=== PATIENT | male | born 1970 | race African-American/Black ===

== ENCOUNTER 2024-06-19 14:56 | Emergency (ER) | payer OTHER ==
[~2024-06-19] VITALS: Ht 188 cm; Wt 94.8 kg
[2024-06-19] MEDS: LACTATED RINGERS 1000ML 1,000 ML IV SCH (16:26)
[2024-06-19 16:40] LABS: BASOPHILS # (AUTO) 0.02 K/uL (0.00-0.20); BASOPHILS % (AUTO) 0.6 % (0.0-5.0); EOSINOPHILS # (AUTO) 0.04 K/uL (0.00-0.70); EOSINOPHILS % (AUTO) 1.1 % (0.0-8.0); HEMATOCRIT 36.4 % (42-54); IMMATURE GRANULOCYTE ABSOLUTE 0.01 K/uL (0-1); LYMPHOCYTES # (AUTO) 1.2 K/uL (1.0-4.8); MEAN CORPUSCULAR HEMOGLOBIN 30.5 pg (27.0-33.0); MEAN CORPUSCULAR HGB CONC 33.8 g/dL (32.0-36.0); MEAN CORPUSCULAR VOLUME 90.3 fL (79-99); MONOCYTES # (AUTO) 0.4 K/uL (0.1-1.0); NEUTROPHILS # (AUTO) 1.9 K/uL (1.8-7.7); PLATELET COUNT (AUTO) 132 K/uL (130-400); RED BLOOD CELL COUNT(AUTO) 4.03 MIL/uL (4.50-6.20); RED CELL DISTRIBUTION WIDTH 14.6 % (11.0-15.5); WHITE BLOOD COUNT (AUTO) 3.6 K/uL (4.8-10.8)
[2024-06-19 16:46] LABS: POTASSIUM 3.5 mmol/L (3.5-5.1)
[2024-06-19 17:59] VITALS: BP 165/79; PULSE 78; RESP 18; O2SAT 99
[2024-06-19] MEDS: KETOROLAC 15MG/ML VIAL (15MG/ML) IV ONE (18:04)
[2024-06-19] MEDS: acetaMINOPHEN 500 MG TABLET PO ONE (18:05)
[2024-06-19] MEDS ORDERED: IBUP-2070 PO (18:14)
[2024-06-19] MEDS ORDERED: ACET-66 PO (18:14)
== END 2024-06-19 18:25 | disposition home or self-care (01) ==
LOC: EEVIPCON 14:56 → EDH 14:56
DX: T67.5XXA Heat exhaustion, unspecified, initial encounter (principal); R51.9 Headache, unspecified; I10 Essential (primary) hypertension; M19.90 Unspecified osteoarthritis, unspecified site; F31.9 Bipolar disorder, unspecified; Z76.5 Malingerer [conscious simulation]; Z79.899 Other long term (current) drug therapy; Z90.89 Acquired absence of other organs; W17.89XA Other fall from one level to another, initial encounter; Y93.89 Activity, other specified; Y92.148 Other place in prison as the place of occurrence of the external cause; Y99.8 Other external cause status
CPT/HCPCS: 99285; 70450; 96374; 71045; 80048; 85025; 36415; 72125; 72131; 72128; J7120; J1885